=== PATIENT | male | born 1955 | race Caucasian/White ===

== ENCOUNTER 2021-06-28 11:12 | Emergency (ER) | payer MEDICARE ==
[2021-06-28] MEDS ORDERED: ZOFRAN ODT 4 MG4 MG SL (13:42)
== END 2021-06-28 13:47 | disposition home or self-care (01) ==
LOC: ER1 11:12
DX: U07.1 COVID-19 (principal); F17.210 Nicotine dependence, cigarettes, uncomplicated
CPT/HCPCS: 99283; U0002